=== PATIENT | male | born 1945 | race Caucasian/White ===

== ENCOUNTER 2022-08-17 13:00 | Oncology outpatient (recurring) (ONCR) | payer OTHER, SELFPAY | END 2022-08-27 23:59 | disposition home or self-care (01) | PROVIDERS: PCP Nurse Practitioner; Visit Provider Internal Medicine Hematology & Oncology | DX: Z45.2 Encounter for adjustment and management of vascular access device (principal) | CPT/HCPCS: 96523; J1642 ==

== ENCOUNTER → 2022-08-17 13:00 | Outpatient (BNVA) | payer OTHER, SELFPAY | PROVIDERS: PCP Nurse Practitioner; Visit Provider Internal Medicine Hematology & Oncology | DX: C43.8 Malignant melanoma of overlapping sites of skin (principal); C79.51 Secondary malignant neoplasm of bone; C79.31 Secondary malignant neoplasm of brain; I48.91 Unspecified atrial fibrillation; Z79.01 Long term (current) use of anticoagulants | CPT/HCPCS: 99204 ==

== ENCOUNTER 2022-09-11 06:03 | Outpatient (CLI) | payer OTHER, SELFPAY ==
--- NOTE | 2022-09-11 08:00 | PETR_ITS ---
PROCEDURE INFORMATION: Exam: PET/CT Skull Base to Mid-thigh Exam date and time: 09/11/2022 8:59 AM Age: 77 years old Clinical indication: Condition or disease; Primary cancer: Personal history of malignant melanoma of skin; Follow-up oncological assessment; Patient HX: No prior imaging available; Additional info: Follow up LABS AND CLINICAL REPORTS: Glucose: 87 mg/dl Treatment strategy for malignancy (PET staging): Restaging (PS) TECHNIQUE: Imaging protocol: Following at least four-hour fasting and following the injection of radiopharmaceutical, low dose CT images were obtained. Then, PET images were obtained. Attenuation corrected images were constructed using the CT scan. Fused images of PET and CT were reviewed. The standardized uptake values (SUV) reported below are maximum values within a region of interest, expressed in gm/ml. Exam includes orbital meatal line to mid-thigh. Radiopharmaceutical: 12.24 mCi F-18 FDG (Fluorodeoxyglucose), IV. Time of imaging post radiopharmaceutical administration: 1 hour Injection site: Left hand COMPARISON: No relevant prior studies available. FINDINGS: Tubes, catheters and devices: A right internal jugular central venous port catheter terminates in the distal SVC. Brain: A region of relative photopenia in the high right parietal region is noted deep to a craniotomy site. No abnormally elevated uptake. Pharynx: No abnormal uptake. Larynx: No abnormal uptake. Lungs, pleura and trachea: No abnormal uptake. Heart: Normal physiologic uptake. Mediastinal space: No abnormal uptake. Diaphragm: Small hiatal hernia. No abnormal uptake. Liver: No abnormal uptake. Gallbladder and bile ducts: No abnormal uptake. Pancreas: No abnormal uptake. Spleen: No abnormal uptake. Adrenal glands: No abnormal uptake. Kidneys and ureters: A non radiotracer avid exophytic fluid density simple appearing cyst arises from the right renal inferior pole measuring 2.1 cm on series 3, image 122. Stomach and bowel: There are scattered colonic diverticula. Mild uptake in the distal sigmoid colon is noted within a region of possible wall thickening on CT series 3 between images 150 and 161, SUV max 4.4, as well as within the region of the distal rectum on the right, SUV max 5.8 on series 4, image 168 of the PET images. Vasculature: No abnormal uptake. Diffuse atherosclerotic changes are noted, including within the coronary arteries. There are atherosclerotic calcifications throughout the abdomen and pelvis with no evidence of aneurysm. Lymph nodes: No abnormal uptake. No lymphadenopathy in the head, neck, chest, abdomen, pelvis, and extremities. Bones/joints: No abnormal uptake in the visualized axial and appendicular skeleton. Tdio-[id number] diffuse degenerative vertebral body spondylosis is noted. Sternotomy wires are present. Soft tissues: In the subcutaneous fat of the mid to superior thorax on series 3, image 71 there is a non radiotracer avid low-density lesion adjacent to the skin surface within the subcutaneous fat with a thin peripheral soft tissue density rim measuring 1.6 x 1.1 cm. METRICS: Mediastinal blood pool: SUV max 2.3 Liver uptake: SUV max 3.5, SUV mean 3.0 PET/PET skulltothigh SUBSEQ [id number] IMPRESSION: 1. Elevated uptake in the sigmoid colon and rectum is noted where there are areas of possible wall thickening which may be related to inflammatory, infectious or neoplastic involvement. Alternatively, this appears may be related to incomplete distension and physiologic uptake. Consider colonoscopy for further assessment as clinically indicated. 2. Encephalomalacia deep to a right parietal lobe craniotomy site. 3. Colonic diverticulosis. 4. Simple appearing right renal cyst. No follow-up is necessary. 5. Degenerative changes in the spine. 6. Non radiotracer avid probable sebaceous cyst in the posterior thorax. 7. Additional nonurgent findings as detailed above.
== END 2022-09-11 06:04 | disposition home or self-care (01) ==
LOC: RAD 09-13 06:03
PROVIDERS: PCP Nurse Practitioner; Visit Provider Internal Medicine Hematology & Oncology
DX: Z85.820 Personal history of malignant melanoma of skin (principal); R93.3 Abnormal findings on diagnostic imaging of other parts of digestive tract; G93.89 Other specified disorders of brain; K57.90 Diverticulosis of intestine, part unspecified, without perforation or abscess without bleeding; M47.9 Spondylosis, unspecified
CPT/HCPCS: 78815; 99204; A9552

== ENCOUNTER 2022-10-05 06:50 | Outpatient (CLI) | payer OTHER, SELFPAY ==
--- NOTE | 2022-10-05 07:15 | MR_ITS ---
WS: [id number] MRI HEAD WITH CONTRAST TECHNIQUE: Sagittal T1, T2 axial, T2 axial FLAIR, axial susceptibility weighted imaging, axial diffus ion weighted images, and coronal T2 images were obtained. Pre and post-T1 axial and post T1 coronal i mages. ADC and FSPGR images. CLINICAL INFORMATION: Follow up COMPARISON: None. FINDINGS: No evidence restricted diffusion to suggest acute ischemia. Ventricular system and basal cisterns are patent. Right parietal craniotomy with resection cavity in the right parietal lobe with encephalomal acia and gliosis. Associated cystic encephalomalacia. Ex vacuo dilatation right lateral ventricle. Burns rrounding hemosiderin. No abnormal gadolinium enhancement. No evidence of increasing edema or mass ef fect. Normal optic chiasm and pituitary infundibulum. Moderate small vessel changes with moderate par enchymal volume loss. Moderate symmetric atrophy temporal lobes and hippocampal formations. Normal posterior fossa. Normal vascular flow voids at the skull base. No extra-axial fluid collection s. No evidence of mass or mass effect. Paranasal sinuses and mastoid air cells are well aerated. Norm al posterior nasopharynx. Normal parapharyngeal fat. No abnormal gadolinium enhancement. Normal visualized dural venous sinuses. IMPRESSION: 1. No evidence of restricted diffusion to suggest acute ischemia. 2. Prior postoperative changes right parietal craniotomy with encephalomalacia and gliosis about a r ight parietal resection cavity. No abnormal gadolinium enhancement. No evidence of increasing edema o r mass effect. 3. 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 4. Moderate small vessel changes with moderate parenchymal volume loss. 5. No abnormal intracranial enhancement.
[2022-10-05] MEDS: gadobenate dimeglumine 20 mL vial IV (08:45)
== END 2022-10-05 06:51 | disposition home or self-care (01) ==
PROVIDERS: PCP Nurse Practitioner; Visit Provider Internal Medicine Hematology & Oncology
DX: Z85.820 Personal history of malignant melanoma of skin (principal)
CPT/HCPCS: 70553; A9577

== ENCOUNTER 2022-10-19 14:39 | Outpatient (CLI) | payer OTHER, SELFPAY ==
[2022-10-19 14:54] LABS: Basophils # 0.1 10^3/uL (0.0-0.1); Eosinophils # 0.3 10^3/uL (0.0-0.8); Eosinophils % 5.2 %; Hematocrit 42.4 % (37-53); Lymphocytes # 1.8 10^3/uL (0.8-4.8); Lymphocytes % 28.9 %; Mean Corpuscular HGB Conc 32.8 g/dL (30-55); Mean Corpuscular Hemoglobin 28.3 pg (27-33); Mean Corpuscular Volume 86.4 fl (82-101); Mean Platelet Volume 10.2 fL (7.4-10.4); Monocytes # 0.7 10^3/uL (0.2-0.9); Monocytes % 10.7 %; Nucleated Red Blood Cells % 0 %; Platelet Count 212 10^3/cmm (157-399); Red Blood Count 4.91 10^6/uL (3.85-5.65); Red Cell Distribution Width 12.9 % (12.1-15.1)
[2022-10-19 15:16] LABS: Alanine Aminotransferase 13 U/L (0-41); Albumin Level 3.6 g/dL (3.5-5.2); Alkaline Phosphatase 212 U/L (40-130); Aspartate Amino Transferase 9 U/L (0-40); Blood Urea Nitrogen 12 mg/dL (8-23); Calcium 8.6 mg/dL (8.5-10.5); Carbon Dioxide 24 mmol/L (22-29); Chloride 106 mmol/L (98-107); Globulin 2.6 g/dL (1.3-4.6); Glucose 105 mg/dL (65-115); Lactate Dehydrogenase 130 U/L (135-225); Osmolality Calculated 288 mOsm/kg (285-295); Sodium 139 mmol/L (136-145); Total Bilirubin 0.3 mg/dL (0.15-1.2); Total Protein 6.2 g/dL (6.6-8.7)
== END 2022-10-19 14:40 | disposition home or self-care (01) ==
PROVIDERS: Internal Medicine Medical Oncology; PCP Nurse Practitioner; Visit Provider Internal Medicine
DX: C43.9 Malignant melanoma of skin, unspecified (principal)
CPT/HCPCS: 80053; 83615; 85025

== ENCOUNTER 2022-10-21 13:50 | Oncology outpatient (recurring) (ONCR) | payer OTHER, SELFPAY | END 2022-10-28 23:59 | disposition home or self-care (01) | LOC: ONCMED 13:50 | PROVIDERS: PCP Nurse Practitioner; Visit Provider Internal Medicine Hematology & Oncology | DX: C43.62 Malignant melanoma of left upper limb, including shoulder (principal); C79.31 Secondary malignant neoplasm of brain; C78.01 Secondary malignant neoplasm of right lung; C77.3 Secondary and unspecified malignant neoplasm of axilla and upper limb lymph nodes; C79.89 Secondary malignant neoplasm of other specified sites; C79.51 Secondary malignant neoplasm of bone; R93.3 Abnormal findings on diagnostic imaging of other parts of digestive tract; I48.91 Unspecified atrial fibrillation; Z79.01 Long term (current) use of anticoagulants; Z79.899 Other long term (current) drug therapy; Z92.21 Personal history of antineoplastic chemotherapy | CPT/HCPCS: 99215 ==